=== PATIENT | male | born 1960 | race Caucasian/White ===

== ENCOUNTER 2018-02-01 07:45 | Emergency (ER) | payer BC ==
[~2018-02-01] VITALS: Ht 167.6 cm; Wt 74.8 kg
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
[2018-02-01] MEDS ORDERED: KETOROLAC TROMETHAMINE 60 MG/2 ML VIAL IM ONE (09:00)
[2018-02-01] MEDS ORDERED: CYCLOBENZAPRINE5 MG PO (09:56)
== END 2018-02-01 10:23 | disposition home or self-care (01) ==
LOC: ER 07:45
DX: M54.2 Cervicalgia (principal); V43.52XA Car driver injured in collision with other type car in traffic accident, initial encounter; R10.9 Unspecified abdominal pain; M54.5 Low back pain
CPT/HCPCS: 99282; J1885

== ENCOUNTER 2018-02-01 13:43 | Emergency (ER) | payer BC ==
[~2018-02-01] VITALS: Ht 167.6 cm; Wt 74.8 kg
[~2018-02-01 13:43] MED LIST: CYCLOBENZAPRINE5 MG PO
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
[2018-02-01] MEDS ORDERED: SODIUM CHLORIDE 0.9% 1000ML 1,000 ML IV STA (13:50)
[2018-02-01] MEDS ORDERED: MORPHINE SULFATE 4 MG/ML SYR IV STA (13:50)
[2018-02-01] MEDS ORDERED: ONDANSETRON HCL 4 MG ORAL DISINTEGRATING TAB PO ONE (14:00)
[2018-02-01 15:15] LABS: CLARITY,URINE HAZY (CLEAR); COLOR,URINE AMBER (YELLOW)
[2018-02-01 15:16] LABS: BILIRUBIN,URINE NEGATIVE (NEGATIVE); KETONES,URINE TRACE (NEGATIVE); LEUKOCYTE ESTERASE ,URINE NEGATIVE (NEGATIVE); NITRITE,URINE NEGATIVE (NEGATIVE); PROTEIN,URINE DIPSTICK TRACE (NEGATIVE); URINE UROBILINOGEN 0.2 mg/dL (0.2 - 1)
[2018-02-01 15:35] LABS: BACTERIA,URINE FEW /HPF; RBC,URINE 0-5 /HPF (0-5)
[2018-02-01 15:37] LABS: EPITHELIAL CELLS,URINE RARE /LPF
[2018-02-01 15:38] LABS: HYALINE CASTS >15 (0-1); RENAL EPITHELIAL CELLS,URINE FEW; TRANSITIONAL EPI CELLS,URINE FEW
[2018-02-01] MEDS ORDERED: MORPHINE SULFATE 2 MG/ML SYR ONE (16:45)
[2018-02-01 16:57] LABS: BASOPHILS # (AUTO) 0.1 (0.0-0.1); BASOPHILS % 0.7 % (0.0-1.0); EOSINOPHILS # (AUTO) 0.2 (0.0-0.4); EOSINOPHILS % 1.5 % (0.0-6.0); HEMATOCRIT 44.7 % (38.2-49.6); HEMOGLOBIN 15.1 g/dL (14.0-18.0); LYMPHOCYTES # (AUTO) 1.3 (1.0-3.2); LYMPHOCYTES % 9.9 % (18.0-39.1); MEAN CORPUSCULAR HGB CONC 33.8 g/dL (31-35); MEAN CORPUSCULAR VOLUME 91.8 fL (81-99); MONOCYTES # (AUTO) 0.8 (0.2-0.8); MONOCYTES % 5.7 % (4.4-11.3); NEUTROPHILS # (AUTO) 11.1 (2.1-6.9); NEUTROPHILS % 81.8 % (38.7-80.0); PLATELET COUNT 213 x10e3/uL (140-360); RED BLOOD COUNT 4.87 x10e6/uL (4.3-5.7)
[2018-02-01 17:01] LABS: INR 0.99; PROTHROMBIN TIME 12.3 seconds (11.9-14.5)
[2018-02-01 17:02] LABS: PARTIAL THROMBOPLASTIN TIME 25.2 seconds (23.8-35.5)
[2018-02-01 17:16] LABS: ALANINE AMINOTRANSFERASE 39 IU/L (0-55); ALBUMIN 4.3 g/dL (3.5-5.0); ALBUMIN/GLOBULIN RATIO 1.7 (0.8-2.0); ALKALINE PHOSPHATASE 64 IU/L (40-150); AMYLASE 49 U/L (25-125); ANION GAP 14.4 mmol/L (8-16); BLOOD UREA NITROGEN 25 mg/dL (7-26); BUN/CREATININE RATIO 19 (6-25); CALCIUM 9.7 mg/dL (8.4-10.2); CARBON DIOXIDE 28 mmol/L (22-29); CHLORIDE 103 mmol/L (98-107); CREATINE KINASE 188 IU/L (30-200); CREATININE, SERUM 1.29 mg/dL (0.72-1.25); EST GLOMERULAR FILTRATION RATE 57 ML/MIN (60-); GLUCOSE 106 mg/dL (74-118); LIPASE 29 U/L (8-78); POTASSIUM 4.4 mmol/L (3.5-5.1); SODIUM 141 mmol/L (136-145)
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
[2018-02-01] MEDS ORDERED: SODIUM CHLORIDE 0.9% 50ML 50 ML ONE (22:02)
[2018-02-01] MEDS ORDERED: IOPAMIDOL 370 MG/ML 200 ML INFUS..BTL INJ ONE (22:02)
== END 2018-02-01 19:00 | disposition home or self-care (01) ==
LOC: ER 13:43
DX: R10.84 Generalized abdominal pain (principal); R11.2 Nausea with vomiting, unspecified
CPT/HCPCS: 36415; 74177; 80053; 81001; 82150; 82550; 82553; 83690; 84484; 85025; 85610; 85730; 87086; 93005; 99284; J2270; J7030; Q9967

== ENCOUNTER 2019-04-09 14:30 | Inpatient (IN) | payer BC ==
[~2019-04-09] VITALS: Ht 167.6 cm; Wt 70.1 kg
--- OUTSIDE RECORDS SUMMARY | 2019-04-09 14:33 | XMS REPORT | Continuity of Care Document ---
Author Author [employer] Address Unknown Phone Unavailable Care Team Providers Care Global Sourcing Manager Name Role Phone [facility] [employer] Unavailable Unavailable Problems No Data Provided for This Section Medications Medication Details Route Status Patient Instructions Ordering Provider Order Date Source Cyclobenzaprine Hcl (Flexeril) 5 Mg Tablet Three Times A Day for Pain Active [place] 02/01/2018 [facility] Allergies, Adverse Reactions, Alerts No Known Medication Allergies Immunizations No Data Provided for This Section Results Order Name Results Value Reference Range Date Interpretation Comments Source Activated partial thromboplastin time (aPTT) in platelet poor plasma bycoagulation assay Activated partial thromboplastin time (aPTT) in platelet poor plasma bycoagulation assay 25.2 23.8 - 35.5 02/01/2018 [facility] Automated blood basophil count (count/volume) Automated blood basophil count (count/volume) 0.1 0.0 - 0.1 02/01/2018 [facility] Automated blood basophil count as percentage of total leukocytes Automated blood basophil count as percentage of total leukocytes 0.7 0.0 - 1.0 02/01/2018 [facility] Automated blood eosinophil count Automated blood eosinophil count 0.2 0.0 - 0.4 02/01/2018 [facility] Automated blood eosinophil count as percentage of total leukocytes Automated blood eosinophil count as percentage of total leukocytes 1.5 0.0 - 6.0 02/01/2018 [facility] Automated blood hematocrit (volume fraction) Automated blood hematocrit (volume fraction) 44.7 38.2 - 49.6 02/01/2018 [facility] Automated blood lymphocyte count as percentage ot total leukocytes Automated blood lymphocyte count as percentage ot total leukocytes 9.9 18.0 - 39.1 02/01/2018 [facility] Automated blood monocyte count as percentage of total leukocytes Automated blood monocyte count as percentage of total leukocytes 5.7 4.4 - 11.3 02/01/2018 [facility] Automated blood neutrophil count Automated blood neutrophil count 11.1 2.1 - 6.9 02/01/2018 [facility] Automated blood platelet count (count/volume) Automated blood platelet count (count/volume) 213 140 - 360 02/01/2018 [facility] Automated blood segmented neutrophil count as percentage of total leukocytes Automated blood segmented neutrophil count as percentage of total leukocytes 81.8 38.7 - 80.0 02/01/2018 [facility] Automated erythrocyte mean corpuscular hemoglobin (mass per erythrocyte) Automated erythrocyte mean corpuscular hemoglobin (mass per erythrocyte) 31.0 28 - 32 02/01/2018 [facility] Automated erythrocyte mean corpuscular hemoglobin concentration measurement (mass/volume) Automated erythrocyte mean corpuscular hemoglobin concentration measurement (mass/volume) 33.8 31 - 35 02/01/2018 [facility] Automated erythrocyte mean corpuscular volume Automated erythrocyte mean corpuscular volume 91.8 81 - 99 02/01/2018 [facility] Blood erythrocytes automated count (number/volume) Blood erythrocytes automated count (number/volume) 4.87 4.3 - 5.7 02/01/2018 [facility] Blood hemoglobin measurement (moles/volume) Blood hemoglobin measurement (moles/volume) 15.1 14.0 - 18.0 02/01/2018 [facility] Blood leukocytes automated count (number/volume) Blood leukocytes automated count (number/volume) 13.53 4.8 - 10.8 02/01/2018 [facility] Blood lymphocytes count (number/volume) Blood lymphocytes count (number/volume) 1.3 1.0 - 3.2 02/01/2018 [facility] Blood monocytes automated count (number/volume) Blood monocytes automated count (number/volume) 0.8 0.2 - 0.8 02/01/2018 [facility] Estimated glomerular filtration rate (GFR) determination Estimated glomerular filtration rate (GFR) determination 57 60 02/01/2018 [facility] Glucose measurement Glucose measurement 106 74 - 118 02/01/2018 [facility] INR in Platelet poor plasma by Coagulation assay INR in Platelet poor plasma by Coagulation assay 0.99 02/01/2018 [facility] Plasma globulin measurement (mass/volume) Plasma globulin measurement (mass/volume) 2.6 2.3 - 3.5 02/01/2018 [facility] Prothrombin time (PT) in platelet poor plasma by coagulation assay Prothrombin time (PT) in platelet poor plasma by coagulation assay 12.3 11.9 - 14.5 02/01/2018 [facility] Serum or plasma alanine aminotransferase measurement (enzymatic activity/volume) Serum or plasma alanine aminotransferase measurement (enzymatic activity/volume) 39 0 - 55 02/01/2018 [facility] Serum or plasma albumin measurement (mass/volume) Serum or plasma albumin measurement (mass/volume) 4.3 3.5 - 5.0 02/01/2018 [facility] Serum or plasma albumin/globulin mass ratio Serum or plasma albumin/globulin mass ratio 1.7 0.8 - 2.0 02/01/2018 [facility] Serum or plasma alkaline phosphatase measurement (enzymatic activity/volume) Serum or plasma alkaline phosphatase measurement (enzymatic activity/volume) 64 40 - 150 02/01/2018 [facility] Serum or plasma amylase measurement (enzymatic activity/volume) Serum or plasma amylase measurement (enzymatic activity/volume) 49 25 - 125 02/01/2018 [facility] Serum or plasma anion gap Serum or plasma anion gap 14.4 8 - 16 02/01/2018 [facility] Serum or plasma calcium measurement (mass/volume) Serum or plasma calcium measurement (mass/volume) 9.7 8.4 - 10.2 02/01/2018 [facility] Serum or plasma carbon dioxide, total measurement (moles/volume) Serum or plasma carbon dioxide, total measurement (moles/volume) 28 22 - 29 02/01/2018 [facility] Serum or plasma chloride measurement (moles/volume) Serum or plasma chloride measurement (moles/volume) 103 98 - 107 02/01/2018 [facility] Serum or plasma creatine kinase MB measurement (mass/volume) Serum or plasma creatine kinase MB measurement (mass/volume) 2.60 0 - 5.0 02/01/2018 [facility] Serum or plasma creatine kinase measurement (enzymatic activity/volume) Serum or plasma creatine kinase measurement (enzymatic activity/volume) 188 30 - 200 02/01/2018 [facility] Serum or plasma creatinine measurement (mass/volume) Serum or plasma creatinine measurement (mass/volume) 1.29 0.72 - 1.25 02/01/2018 [facility] Serum or plasma lipase measurement (enzymatic activity/volume) Serum or plasma lipase measurement (enzymatic activity/volume) 29 8 - 78 02/01/2018 [facility] Serum or plasma potassium measurement (moles/volume) Serum or plasma potassium measurement (moles/volume) 4.4 3.5 - 5.1 02/01/2018 [facility] Serum or plasma protein measurement (mass/volume) Serum or plasma protein measurement (mass/volume) 6.9 6.5 - 8.1 02/01/2018 [facility] Serum or plasma sodium measurement (moles/volume) Serum or plasma sodium measurement (moles/volume) 141 136 - 145 02/01/2018 [facility] Serum or plasma total bilirubin measurement (mass/volume) Serum or plasma total bilirubin measurement (mass/volume) 0.6 0.2 - 1.2 02/01/2018 [facility] Serum or plasma urea nitrogen measurement (mass/volume) Serum or plasma urea nitrogen measurement (mass/volume) 25 7 - 26 02/01/2018 [facility] Serum or plasma urea nitrogen/creatinine mass ratio Serum or plasma urea nitrogen/creatinine mass ratio 19 6 - 25 02/01/2018 [facility] Troponin I measurement by highly sensitive enzyme immunoassay Troponin I measurement by highly sensitive enzyme immunoassay <0.001 0 - 0.300 02/01/2018 [facility] Red Cell Distribution Width 12.0 11.7 - 14.4 02/01/2018 [facility] IM GRANULOCYTES % 0.4 0.0 - 1.0 02/01/2018 [facility] Absolute Immature Granulocyte (auto 0.05 0 - 0.1 02/01/2018 [facility] Aspartate Amino Transf (AST/SGOT) 29 5 - 34 02/01/2018 [facility] Automated urine sediment leukocyte count by microscopy (number/high power field) Automated urine sediment leukocyte count by microscopy (number/high power field) <10 0 - 5 02/01/2018 [facility] Bacteria detection in urine sediment by light microscopy Bacteria detection in urine sediment by light microscopy FEW NONE 02/01/2018 [facility] Epithelial cells detection in urine sediment by light microscopy Epithelial cells detection in urine sediment by light microscopy RARE NONE 02/01/2018 [facility] Erythrocytes detection in urine sediment by light microscopy Erythrocytes detection in urine sediment by light microscopy <5 0 - 5 02/01/2018 [facility] Hyaline casts detection in urine sediment by light microscopy Hyaline casts detection in urine sediment by light microscopy >15 0 - 1 02/01/2018 [facility] Renal epithelial cells detection in urine sediment by light microscopy Renal epithelial cells detection in urine sediment by light microscopy FEW NONE 02/01/2018 [facility] Specific gravity of Urine by Test strip Specific gravity of Urine by Test strip 1.030 1.010 - 1.025 02/01/2018 [facility] Transitional cells detection in urine sediment by light microscopy Transitional cells detection in urine sediment by light microscopy FEW NONE 02/01/2018 [facility] Urine clarity Urine clarity HAZY CLEAR 02/01/2018 [facility] Urine color determination Urine color determination KAIA YELLOW 02/01/2018 [facility] Urine erythrocytes detection Urine erythrocytes detection NEGATIVE NEGATIVE 02/01/2018 [facility] Urine glucose detection Urine glucose detection NEGATIVE NEGATIVE 02/01/2018 [facility] Urine ketones detection by automated test strip Urine ketones detection by automated test strip TRACE NEGATIVE 02/01/2018 [facility] Urine leukocyte esterase detection by dipstick Urine leukocyte esterase detection by dipstick NEGATIVE NEGATIVE 02/01/2018 [facility] Urine nitrite detection Urine nitrite detection NEGATIVE NEGATIVE 02/01/2018 [facility] Urine pH measurement by automated test strip Urine pH measurement by automated test strip 6 5 - 7 02/01/2018 [facility] Urine protein measurement by test strip (mass/volume) Urine protein measurement by test strip (mass/volume) TRACE NEGATIVE 02/01/2018 [facility] Urine total bilirubin measurement (mass/volume) Urine total bilirubin measurement (mass/volume) NEGATIVE NEGATIVE 02/01/2018 [facility] Urine urobilinogen measurement by test strip (mass/volume) Urine urobilinogen measurement by test strip (mass/volume) 0.2 0.2 - 1 02/01/2018 [facility] Pathology Reports No Data Provided for This Section Diagnostic Reports No Data Provided for This Section Consultation Notes No Data Provided for This Section Discharge Summaries No Data Provided for This Section History and Physicals No Data Provided for This Section Vital Signs No Data Provided for This Section Encounters Location Location Details Encounter Type Encounter Number Reason For Visit Attending Provider ADM Date DC Date Status Source Departed Emergency Room [id number] ARTHUR SINGLETON MD 02/01/2018 02/01/2018 [facility] Departed Emergency Room [id number] ARTHUR SINGLETON MD 02/01/2018 02/01/2018 [facility] Procedures Procedure Code Date Perfomer Comments Source Computed tomography of abdomen and pelvis with contrast [id number] 02/01/2018 [facility] Assessment and Plan No Data Provided for This Section Plan of Care Plan of Care Date Source Discharge Date 02/01/18 7:00pm Disposition HOME, SELF-CARE Condition at Discharge Stable Instructions/Education Provided Abdominal Pain - Adult Vomiting - Adult Forms Provided Work/School Excuse Prescriptions See Medication Section Referrals JACKY CHOI Address: [address] [place] [id number] Additional Instructions/Education 1. increase oral fluids 2. bland diet x 24 hours 3. follow up with your doctor in 1-2 days without fail 4. return to ed as needed 02/01/2018 [facility] Social History Social History Date Source No social history information available. 02/01/2018 [facility] Family History No Data Provided for This Section Advance Directives Order Name Results Value Date Source Advance Directives Advance Directives Directive Response Recorded Date/Time Does the patient have an advance directive? No 01/18/08 7:54am If yes, is advance directive on file with [facility]? No 01/18/08 7:54am If not on file with [facility] will patient provide a copy? No 02/01/18 9:08am Do you have a Directive to Physician? No 02/01/18 5:10pm Do you have a Medical Power of Paralegal Assistant? No 02/01/18 5:10pm Do you have an out of hospital Do Not Resuscitate Order? No 02/01/18 5:10pm Do you have any special needs we should be aware of? No 02/01/18 5:10pm Do you have a support person here with you today? Yes 02/01/18 5:10pm Did patient receive Notice of Privacy Practices? Yes 02/01/18 5:10pm Did patient receive patient rights and responsibilities? Yes 02/01/18 5:10pm 02/01/2018 [facility] Functional Status No Data Provided for This Section
--- OUTSIDE RECORDS SUMMARY | 2019-04-09 14:33 | XMS REPORT | Summary of Care ---
Author Author Camryn Nguyen M.A. Organization Unknown Address [facility] Phone Unavailable Care Team Providers Care Digital Project Coordinator Name Role Phone LUIS MENDOZA M.D. Unavailable STEPH Brown, JACKY Shah Unavailable Camryn Nguyen M.A. Unavailable Unavailable STEPH WHITAKER WIJACKY Unavailable Unavailable KRYSTAL WHITAKER, GARRETT Otero Unavailable Unavailable REJI WHITAKER [place], LUIS Prather Unavailable Unavailable Unavailable Unavailable Functional Status Name Dates Details Functional status health issues are not documented Status: Name Dates Details Cognitive status health issues are not documented Status: Problems Name Dates Details Dextroscoliosis (737.39, M41.80) Status: Active Encounter for prostate cancer screening (V76.44, Z12.5) Status: Active Flu vaccine need (V04.81, Z23) Status: Active Choledocholithiasis (574.50, K80.50) Status: Active 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 * Start : 21-Feb-2015 Active Alclometasone Dipropionate 0.05 % External Cream APPLY CREAM SPARINGLY TO AFFECTED AREA(S) THREE TIMES DAILY * Quantity: 1 Refills: 0 LUIS MENDOZA M.D. * Start : 16-Nov-2018 Active 15 GM Tube Nizoral A-D 1 % External Shampoo APPLY TO SCALP EVERY OTHER DAY FOR 5 MINUTES AND RINSE. * Quantity: 1 Refills: 3 LUIS MENDOZA M.D. * Start : 16-Nov-2018 Active 200 ML Bottle Triamcinolone Acetonide 0.5 % External Cream APPLY SPARINGLY TO AFFECTED AREA(S) 2 TO 3 TIMES DAILY. * Quantity: 1 Refills: 0 LUIS MENDOZA M.D. * Start : 21-Nov-2018 Active 15 GM Tube Allergies and Adverse Reactions Name Dates Details [...] (737.30, M41.9) Status: Resolved History of Skin lesion of left leg (709.9, L98.9) Status: Resolved History of Skin tag (701.9, [...] ML Intramuscular Suspension Prefilled Syringe Lot #: [id number] on: 31-May-2017 Family History Name Dates Details Family history of Hypertension (V17.49) Comments: Family History Status: Active Family history of Cancer Comments: Family History Status: Active Name Dates Details Family history of Hypertension (V17.49) Status: Active Family history of Cancer Status: Active Social History Name Dates Details - Status: Name Dates Details Never smoker Vital Signs Date Test Result Details [id number] Physical Findings 0 Status: Comments: PHQ-9 Adult Depression Screening 24-Kob-197890:00 BP Systolic 133 mm[Hg] Status: Comments: Location: RUE; Position: Sitting BP Diastolic 88 mm[Hg] Status: Comments: Location: [facility]; Position: Sitting Height 66 in Status: Weight 164 lb Status: Body Mass Index Calculated 26.47 kg/m2 Status: Body Surface Area Calculated 1.84 m2 Status: Temperature 98.1 f Status: Comments: Method: Temporal Respiration Rate 16 /min Status: Heart Rate 71 /min Status: 14-Wpb-424392:59 Physical Findings 0 Status: Comments: Alcohol Screen - How many times in the past yr have you had 5 (for M) or 4 (for F) or 4 (for all > 65yrs) or more drinks in a day? Results Date Description Value Details :34 [] LIPID PANEL WITH REFLEX TO DIRECT LDL CHOLESTEROL, TOTAL 176 mg/dl (Normal) Range: <200 HDL CHOLESTEROL 79 mg/dl (Normal) Range: >40 TRIGLYCERIDES 56 mg/dl (Normal) Range: <150 LDL-CHOLESTEROL 83 {MG/DL__CAL} (Normal) Comments: Reference range: <100 Desirable range <100 mg/dL for primary prevention; <70 mg/dL for patients with CHD or diabetic patients with > or=2 CHD risk factors. LDL-C is now calculated using anil Ness calculation, which is a validated novel method providing better accuracy than the Friedewald equation in the estimation of LDL-C. Patrick SS et al. COTY. 2013;310(19): 9528-0611 (http:/ /education.DraftDay.Bellabeat/faq/PVB132) CHOL/HDLC RATIO 2.2 {CALC} (Normal) Range: <5.0 NON HDL CHOLESTEROL 97 {MG/DL__CAL} (Normal) Range: <130 Comments: For patients with diabetes plus 1 major ASCVD risk factor, treating to a non-HDL-C goal of <100 mg/dL (LDL-C of <70 mg/dL) is considered a therapeutic option. :34 [[facility]] CMP W/EGFR GLUCOSE 100 mg/dl (Above high threshold) Range: 65-99 Comments: Fasting reference interval For someone without known diabetes, a glucose valuebetween 100 and 125 mg/dL is consistent withprediabetes and should be confirmed with afollow-up test. UREA NITROGEN (BUN) 19 mg/dl (Normal) Range: 7-25 CREATININE 0.77 mg/dl (Normal) Range: 0.70-1.25 Comments: For patients >49 years of age, the reference limitfor Creatinine is approximately 13% higher for peopleidentified as -Haitian. eGFR NON- 99 {ML/MIN/1.7} (Normal) Range: > OR=60 eGFR 114 {ML/MIN/1.7} (Normal) Range: > OR=60 BUN/CREATININE RATIO NOT APPLICABLE {CALC} Range: 6-22 SODIUM 140 mmol/L (Normal) Range: 135-146 POTASSIUM 4.3 mmol/L (Normal) Range: 3.5-5.3 CHLORIDE 103 mmol/L (Normal) Range: 98-110 CARBON DIOXIDE 31 mmol/L (Normal) Range: 20-32 CALCIUM 9.1 mg/dl (Normal) Range: 8.6-10.3 PROTEIN, TOTAL 6.1 g/dl (Normal) Range: 6.1-8.1 ALBUMIN 4.2 g/dl (Normal) Range: 3.6-5.1 GLOBULIN 1.9 {G/DL__CALC} (Normal) Range: 1.9-3.7 ALBUMIN/GLOBULIN RATIO 2.2 {CALC} (Normal) Range: 1.0-2.5 BILIRUBIN, TOTAL 0.4 mg/dl (Normal) Range: 0.2-1.2 ALKALINE PHSPHATASE 65 u/l (Normal) Range: 40-115 AST 22 u/l (Normal) Range: 10-35 ALT 31 u/l (Normal) Range: 9-46 39-Wcr-24599:34 [[facility]] CBC (INCLUDES DIFF/PLT) WHITE BLOOD CELL COUNT 6.1 {Thousand/u} (Normal) Range: 3.8-10.8 RED BLOOD CELL COUNT 4.92 {Million/uL} (Normal) Range: 4.20-5.80 HEMAGLOBIN 15.4 g/dl (Normal) Range: 13.2-17.1 HEMATOCRIT 44.3 % (Normal) Range: 38.5-50.0 MCV 90.0 fL (Normal) Range: 80.0-100.0 MCH 31.3 pg (Normal) Range: 27.0-33.0 MCHC 34.8 g/dl (Normal) Range: 32.0-36.0 RDW 12.0 % (Normal) Range: 11.0-15.0 PLATELET COUNT 208 {Thousand/u} (Normal) Range: 140-400 MPV 10.3 fL (Normal) Range: 7.5-12.5 ABSOLUTE NEUTROPHILS 3617 {cells/uL} (Normal) Range: 7787-0141 ABSOLUTE LYMPHOCYTES 1647 {cells/uL} (Normal) Range: 850-3900 ABSOLUTE MONOCYTES 512 {cells/uL} (Normal) Range: 200-950 ABSOLUTE EOSINOPHILS 232 {cells/uL} (Normal) Range: 15-500 ABSOLUTE BASOPHILS 92 {cells/uL} (Normal) Range: 0-200 NEUTROPHILS 59.3 % (Normal) LYMPHOCYTES 27.0 % (Normal) MONOCYTES 8.4 % (Normal) EOSINOPHILS 3.8 % (Normal) BASOPHILS 1.5 % (Normal) 03-Qnj-44936:34 [[facility]] TSH, 3RD GENERATION W/REFLEX TO FT4 Comments: REPORT COMMENT:FASTING:YES TSH, 3RD GENERATION W/REFLEX TO FT4 1.47 {MIU/L} (Normal) Range: 0.40-4.50 16-Mnt-327613:00 Tobacco Use Screening Completed DONE Plan of Care Name Dates Details Planned Observations Planned Goals not documented Instructions Name Dates Details Instructions not documented Encounters Appointment; ALEXANDER HEARD NP Encounter Diagnosis: Problem not documented On: 31-May-2017 9:30 Appointment; JACKY CHOI M.D. Encounter Diagnosis: Problem not documented On: 12-Dec-2017 12:00 Appointment; JACKY CHOI M.D. Encounter Diagnosis: Problem not documented On: 05-Jul-2018 9:45 Appointment; GARRETT RICE M.D. Encounter Diagnosis: Problem not documented On: 03-Nov-2018 15:00 Appointment; LUIS MENDOZA M.D. Encounter Diagnosis: Problem not documented On: 16-Nov-2018 13:15 Appointment; JACKY CHOI M.D. Encounter Diagnosis: Problem not documented On: 19-Jan-2019 16:00
--- OUTSIDE RECORDS SUMMARY | 2019-04-09 14:33 | XMS REPORT ---
Author Author [facility] Address Unknown Phone Unavailable Care Team Providers Care Control Director Name Role Phone ARELIMinnieENCE Unavailable Unavailable Problems This patient has no known problems. Allergies, Adverse Reactions, Alerts This patient has no known allergies or adverse reactions. Medications This patient has no known medications. Results Test Description Test Time Test Comments Text Results Atomic Results Result Comments CT ABDOMEN/PELVIS W 2018-02-01 18:14:00 [facility] [address] [address] Patient Name: JUAN NICOLE MR #: [id number] : 1960 Age/Sex: 57/M Req #: [id number] Adm Physician: Ordered by: ROBERTO GOTTI FINANCE PROFESSOR Report #: [id number] Location: ER Room/Bed: Procedure: CT/CT ABDOMEN/PELVIS W Exam Date: 02/01/18 Exam Time: 1745 REPORT STATUS: Signed EXAM: CT Abdomen and Pelvis WITH contrast INDICATION: COMPARISON: None. TECHNIQUE: Abdomen and pelvis were scanned utilizing a multidetector helical scanner from the lung base to the pubic symphysis after administration of IV contrast. Coronal and sagittal reformations were obtained. Routine protocol was performed. Scan was performed when during portal venous phase. IV CONTRAST: 100 mL of Isovue-370 ORAL CONTRAST: None. COMPLICATIONS: None RADIATION DOSE: Total DLP: 471.86 mGy*cm Estimated effective dose: (DLP x 0.015 x size factor) mSv CTDIvol has been reviewed. It is below the limits set by the Radiation Protocol Committee (RPC). FINDINGS: LINES and TUBES: None. LOWER THORAX: Unremarkable HEPATOBILIARY: No focal hepatic lesions. No biliary ductal dilation. GALLBLADDER: Cholecystectomy. SPLEEN: No splenomegaly. 1.2 cm hypodense lesion in the superior spleen (series 2, image 4), may represent a hemangioma. PANCREAS: No focal masses or ductal dilatation. ADRENALS: No adrenal nodules KIDNEYS/URETERS: Kidneys enhance symmetrically. No hydronephrosis. No cystic or solid mass le sions. No stones. GI TRACT: No abnormal distention, wall thickening, or evidence of bowel obstruction. Appendix is normal. Lateral displacement of the small bowel loops in left abdomen. PELVIC ORGANS/BLADDER: Unremarkable. LYMPH NODES: No lymphadenopathy. VESSELS: Unremarkable. PERITONEUM / RETROPERITONEUM: No free air or fluid. BONES: Lumbar spine scoliosis, status post posterior fixation with bilateral Isidro rods and multiple screws. Evaluation of the spine is limited due to streak artifacts. SOFT TISSUES: Unremarkable. Diastases of the rectus muscle. Abdominal wall surgical scars. IMPRESSION: 1. No evidence of traumatic injury in the abdomen/pelvis. 2. Lateral displacement of the small bowel loops to the left abdomen, suggestive of internal herniation. No evidence of bowel obstruction or strangulation. Signed by: Dr. Amol Ace MD on 02/01/2018 6:26 PM Dictated By: AMOL ACE MD 25 Transcribed By: KATERINA on 02/01/181825 COPY TO: ROBERTO GOTTI NP
[2019-04-09] MEDS ORDERED: SODIUM CHLORIDE 0.9% 1000ML 1,000 ML IV STA (15:08)
[2019-04-09] MEDS ORDERED: ONDANSETRON HCL INJ 2MG/ML 2ML 2 MG/ML VIAL IV ONE (15:08)
[2019-04-09 15:29] LABS: BASOPHILS % 0.4 % (0.0-1.0); EOSINOPHILS # (AUTO) 0.1 (0.0-0.4); EOSINOPHILS % 1.9 % (0.0-6.0); HEMATOCRIT 43.6 % (38.2-49.6); HEMOGLOBIN 15.2 g/dL (14.0-18.0); LYMPHOCYTES # (AUTO) 1.5 (1.0-3.2); LYMPHOCYTES % 22.8 % (18.0-39.1); MEAN CORPUSCULAR HEMOGLOBIN 31.3 pg (28-32); MEAN CORPUSCULAR HGB CONC 34.9 g/dL (31-35); MEAN CORPUSCULAR VOLUME 89.7 fL (81-99); MONOCYTES # (AUTO) 0.9 (0.2-0.8); MONOCYTES % 13.5 % (4.4-11.3); NEUTROPHILS # (AUTO) 4.1 (2.1-6.9); PLATELET COUNT 189 x10e3/uL (140-360); RED BLOOD COUNT 4.86 x10e6/uL (4.3-5.7)
[2019-04-09] MEDS ORDERED: PANTOPRAZOLE 40 MG 10ML VIAL IV STA (15:33)
[2019-04-09 15:42] LABS: BILIRUBIN,URINE NEGATIVE (NEGATIVE); CLARITY,URINE SL CLOUDY (CLEAR); COLOR,URINE YELLOW (YELLOW); KETONES,URINE TRACE (NEGATIVE); LEUKOCYTE ESTERASE ,URINE NEGATIVE (NEGATIVE); NITRITE,URINE NEGATIVE (NEGATIVE); PROTEIN,URINE DIPSTICK TRACE (NEGATIVE); URINE UROBILINOGEN 0.2 mg/dL (0.2 - 1)
[2019-04-09 15:49] LABS: ALANINE AMINOTRANSFERASE 45 IU/L (0-55); ALBUMIN 3.8 g/dL (3.5-5.0); ALBUMIN/GLOBULIN RATIO 1.4 (0.8-2.0); ALKALINE PHOSPHATASE 78 IU/L (40-150); ANION GAP 15.1 mmol/L (8-16); BLOOD UREA NITROGEN 42 mg/dL (7-26); BUN/CREATININE RATIO 27 (6-25); CALCIUM 9.1 mg/dL (8.4-10.2); CARBON DIOXIDE 24 mmol/L (22-29); CHLORIDE 100 mmol/L (98-107); CREATINE KINASE 81 IU/L (30-200); CREATININE, SERUM 1.53 mg/dL (0.72-1.25); EST GLOMERULAR FILTRATION RATE 47 ML/MIN (60-); GLUCOSE 92 mg/dL (74-118); LIPASE 34 U/L (8-78); MAGNESIUM 2.2 MG/DL (1.3-2.1); POTASSIUM 3.1 mmol/L (3.5-5.1); SODIUM 136 mmol/L (136-145)
[2019-04-09 16:02] LABS: BACTERIA,URINE MODERATE /HPF
[2019-04-09 16:03] LABS: AMORPHOUS SEDIMENT,URINE MODERATE (FEW)
--- NOTE | 2019-04-09 16:41 | Diagnostic Imaging Report ---
EXAMINATION: CHEST SINGLE (PORTABLE) INDICATION: Hypotension, nausea vomiting and diarrhea COMPARISON: None FINDINGS: LINES/TUBES:None LUNGS:The lungs are well-inflated. No focal consolidation or pulmonary edema. PLEURA:No pleural effusion or pneumothorax. MEDIASTINUM:The cardiomediastinal silhouette appears normal in size and shape. BONES/SOFT TISSUES:Dextroconvex curvature of the thoracic spine. Postoperative changes of spinal fusion hardware. Extensive heterotopic ossification. ABDOMEN:No free air under the diaphragm. IMPRESSION: No focal pneumonia or pulmonary edema. Signed by: Brandy Lind MD on 04/09/2019 4:37 PM
[2019-04-09] MEDS ORDERED: KCL 20MEQ/.9 SOD CHL 1,000 ML IV ONE ×2 (16:45→19:30)
--- NOTE | 2019-04-09 18:44 | Diagnostic Imaging Report ---
EXAM: CT Abdomen and Pelvis WITH contrast INDICATION: ^LLQ TENDERNESS ^[id number] ^[id number] COMPARISON: CT abdomen/pelvis, 02/01/2018 (report only; images are not available on PACS) TECHNIQUE: Abdomen and pelvis were scanned utilizing a multidetector helical scanner from the lung base to the pubic symphysis after administration of IV contrast. Coronal and sagittal reformations were obtained. Routine protocol was performed. Scan was performed when during portal venous phase. Dose modulation, iterative reconstruction, and/or weight based adjustment of the mA/kV was utilized to reduce the radiation dose to as low as reasonably achievable. IV CONTRAST: 100 mL of Isovue-370 ORAL CONTRAST: None RADIATION DOSE: Total DLP: 642.83 mGy*cm Estimated effective dose: (DLP x 0.015 x size factor) mSv COMPLICATIONS: None FINDINGS: LINES and TUBES: None. LOWER THORAX: Lung bases are clear. Heart size normal. HEPATOBILIARY: No focal hepatic lesions. No biliary ductal dilation. GALLBLADDER: Surgical clips in the gallbladder fossa. SPLEEN: Hyperdense enhancing lesion in the superior spleen likely representing a hemangioma. PANCREAS: No focal masses or ductal dilatation. ADRENALS: No adrenal nodules KIDNEYS/URETERS: Kidneys enhance symmetrically. No hydronephrosis. No cystic or solid mass lesions. No stones. GI TRACT: No abnormal distention, wall thickening, or evidence of bowel obstruction. Sigmoid diverticula with no CT evidence for acute diverticulitis. There is a partial swirl of mesenteric vessels without evidence for full volvulus. This may represent a partial mesenteric twist or may be related to small bowel internal herniation as described on the previous CT. There is mild distention of small bowel loops with air-fluid levels. Appendix is normal. PELVIC ORGANS/BLADDER: Urinary bladder appears unremarkable. No discrete abnormal mass or fluid collection in the pelvis. Surgical clips are seen in the presacral area. LYMPH NODES: No lymphadenopathy. VESSELS: The upper abdominal aorta is unremarkable. The distal aorta and aortic bifurcation are obscured by artifact from spinal hardware. Visualized IVC appears unremarkable. The portal system is patent. PERITONEUM / RETROPERITONEUM: No pneumoperitoneum or ascites. BONES: No acute or suspicious bony lesions. There is scoliosis with extensive spinal fusion hardware partially visualized. SOFT TISSUES: Superficial surrounding soft tissue unremarkable. IMPRESSION: 1. Mild distention of small bowel loops with fluid levels may be related to ileus or partial obstruction. 2. There is a partial twist of mesenteric vessels which does not appear to represent a full volvulus but may be related to the internal herniation of small bowel loops noted on the previous exam. 3. Sigmoid diverticulosis with no CT evidence for acute diverticulitis. Staff: Juan Carlos Signed by: Dr. Macho Rangel M.D. on 04/09/2019 6:40 PM
[2019-04-09] MEDS ORDERED: ONDANSETRON HCL INJ 2MG/ML 2ML 2 MG/ML VIAL IV PRN (19:30)
[2019-04-09] MEDS ORDERED: MORPHINE SULFATE 2 MG/ML SYR 1ML IV PRN (19:30)
[2019-04-09] MEDS ORDERED: SODIUM CHLORIDE 0.9% 1000ML 1,000 ML IV SCH (19:45)
--- NOTE | 2019-04-09 19:48 | NUR ---
Patient refused NG tube. I spoke with Dr López and Dr Tim García
--- OUTSIDE RECORDS SUMMARY | 2019-04-09 21:03 | XMS REPORT | Continuity of Care Document ---
Author Author [employer] Address Unknown Phone Unavailable Care Team Providers Care Solar Installation Supervisor Name Role Phone [facility] VEEDIMS Unavailable Unavailable Problems No Data Provided for This Section Medications Medication Details Route Status Patient Instructions Ordering Provider Order Date Source Cyclobenzaprine Hcl (Flexeril) 5 Mg Tablet Three Times A Day for Pain Active [place] 02/01/2018 [facility] Allergies, Adverse Reactions, [...] DC Date Status Source Departed Emergency Room [id number] ARTHUR SINGLETON MD 02/01/2018 02/01/2018 [facility] Departed Emergency Room [id number] ARTHUR SINGLETON MD 02/01/2018 02/01/2018 [facility] Procedures Procedure Code Date Perfomer Comments Source Computed tomography of abdomen and pelvis with contrast [id number] 02/01/2018 [facility] Assessment and Plan No Data Provided for This Section Plan of Care Plan of Care Date Source Discharge Date 02/01/18 7:00pm Disposition HOME, SELF-CARE Condition at Discharge Stable Instructions/Education Provided Abdominal Pain - Adult Vomiting - Adult Forms Provided Work/School Excuse Prescriptions See Medication Section Referrals JACKY CHOI Address: [address] [place] [id number] Additional Instructions/Education 1. increase oral fluids [...] yes, is advance directive on file with [facility]? No 01/18/08 7:54am If not on file with [facility] will patient provide a copy? No 02/01/18 9:08am Do you have a Directive to Physician? No 02/01/18 5:10pm Do you have a Medical Power of Customer Service Advocate? No 02/01/18 5:10pm Do you have an [...]
[2019-04-09 22:20] VITALS: BP 102/56
--- NOTE | 2019-04-09 22:20 | NUR ---
PT ARRIVED TO FLOOR VIA STRETCHER AT THIS TIME.
[2019-04-09] MEDS ORDERED: IOPAMIDOL 370 MG/ML 200 ML INFUS..BTL INJ ONE (22:50)
[2019-04-09] MEDS ORDERED: SODIUM CHLORIDE 0.9% 50ML 50 ML ONE (22:50)
[2019-04-10] VITALS (9 sets, daily range): BP systolic 102–131; BP diastolic 58–82
[2019-04-10 05:28] LABS: BASOPHILS % 0.6 % (0.0-1.0); EOSINOPHILS # (AUTO) 0.2 (0.0-0.4); EOSINOPHILS % 2.7 % (0.0-6.0); HEMOGLOBIN 13.7 g/dL (14.0-18.0); LYMPHOCYTES # (AUTO) 1.7 (1.0-3.2); LYMPHOCYTES % 26.8 % (18.0-39.1); MEAN CORPUSCULAR HEMOGLOBIN 30.9 pg (28-32); MEAN CORPUSCULAR HGB CONC 33.4 g/dL (31-35); MEAN CORPUSCULAR VOLUME 92.6 fL (81-99); MONOCYTES # (AUTO) 0.6 (0.2-0.8); MONOCYTES % 10.3 % (4.4-11.3); NEUTROPHILS # (AUTO) 3.7 (2.1-6.9); NEUTROPHILS % 59.1 % (38.7-80.0); PLATELET COUNT 171 x10e3/uL (140-360); RED BLOOD COUNT 4.43 x10e6/uL (4.3-5.7); RED CELL DISTRIBUTION WIDTH 12.1 % (11.7-14.4)
[2019-04-10 05:41] LABS: ANION GAP 11.8 mmol/L (8-16); BLOOD UREA NITROGEN 22 mg/dL (7-26); BUN/CREATININE RATIO 27 (6-25); CALCIUM 8.5 mg/dL (8.4-10.2); CARBON DIOXIDE 24 mmol/L (22-29); CHLORIDE 108 mmol/L (98-107); CREATININE, SERUM 0.83 mg/dL (0.72-1.25); EST GLOMERULAR FILTRATION RATE > 60 ML/MIN (60-); GLUCOSE 76 mg/dL (74-118); POTASSIUM 3.8 mmol/L (3.5-5.1); SODIUM 140 mmol/L (136-145)
[2019-04-10] MEDS: SODIUM CHLORIDE 0.9% 1000ML 1,000 ML IV SCH ×3 (06:18→22:18)
--- NOTE | 2019-04-10 07:08 | NUR ---
pt alert resp even and unlabored at this time no distress noted , pt has no c/o pain when asked, pt has family member at bedside, call light in reach.
--- NOTE | 2019-04-10 08:23 | NUR ---
pt off unit for test.
--- NOTE | 2019-04-10 08:55 | NUR ---
pt eturn to unit resp even omn distress noted.
--- NOTE | 2019-04-10 09:00 | NUR ---
pt had ekg at bedside, tolerated well.
--- NOTE | 2019-04-10 09:37 | Diagnostic Imaging Report ---
Exam: KUB - 2 views Clinical History: Ileus Comparison: CT abdomen and pelvis of 04/09/2019 Findings: Nonobstructive bowel gas pattern. No free air. The partially visualized lung bases appear clear. Status post cholecystectomy. Thoracolumbar fusion hardware spans the entirety of the visualized spine. Surgical clips project over the midline and pelvis. Impression: Nonobstructive bowel gas pattern. No free air. Signed by: Brandy Lind MD on 04/10/2019 9:33 AM
--- NOTE | 2019-04-10 13:50 | NUR ---
Visit made by the Spiritual Care Department Pastoral Visitor, [place]. PV provided pastoral presence, prayer, hospitality, and supportive listening. Pastoral Visitor informed pt/family of the scope of [employer] and availability. PB [employer] Branch Chief Spiritual Care Department O: [phone] Pager: [phone] ([phone] number calling from)
--- NOTE | 2019-04-10 14:10 | Consultation ---
DATE OF CONSULTATION: REASON FOR CONSULTATION: Possible bowel obstruction. HISTORY OF PRESENT ILLNESS: The patient is a pleasant 58-year-old male, who was admitted to the hospital complaining of diarrhea, nausea, and vomiting. The patient apparently ate some old hot dogs and subsequently shortly following the consumption of the old hot dogs began having nausea, vomiting, and diarrhea. He presented to [facility] ER, where he was admitted. He had a CT scan of the abdomen that revealed air-fluid levels of the small bowel consistent with partial bowel obstruction. Question was raised for the partial volvulus. The patient since admission feels a lot better. He has not had any vomiting, nausea, or diarrhea. Admission laboratory reveals twice normal CBC with normal white count. His admission electrolytes reveal hypokalemia that has been corrected with potassium and IV hydration. The patient following admission was given IV fluids, kept n.p.o. Follow up abdominal x-rays revealed no evidence of obstruction with a normal pattern. PAST MEDICAL HISTORY: Significant for hypertension. PAST SURGICAL HISTORY: Include laparoscopic cholecystectomy and anterior abdominal approach for correction of scoliosis. MEDICATIONS: His only medicine is hypertension medicine, which he does not remember the name. He does not smoke. Drinks socially. PHYSICAL EXAMINATION: GENERAL: Reveals a 58-year-old male, awake, alert, in no acute distress. ABDOMEN: Reveal a midline left paramedian incision from the previous anterior approach to the spine. ABDOMEN: Soft, nontender. His abdomen is protuberant. EXTREMITIES: Reveal no clubbing, cyanosis, or edema. NEUROLOGICAL: Nonfocal. SKIN: Normal turgor at this time. ASSESSMENT: Most likely what this patient had was an episode of food poisoning, which now has resolved. There is no evidence of bowel obstruction. At this point, I think it would be appropriate to start him on oral diet and advance it as tolerated and then following that, discharge him home. Should the symptoms recur, then he will need some more in depth GI evaluation sites. Thank you very much for this consultation. MD MEENA Zamudio/SUKHDEEP /[id number]
--- NOTE | 2019-04-10 19:00 | NUR ---
BEDSIDE [facility] JANE MORA AT THIS TIME. PT RESTING COMFORTABLY IN BED IN NO APPARENT DISTRESS. BED IS IN LOW LOCKED POSITION AND CALL LIGHT IS IN REACH OF PT. WILL CONTINUE TO MONITOR.
--- NOTE | 2019-04-10 19:03 | NUR ---
report given to oncoming nurse . pt stable.
[2019-04-11] VITALS: BP 130/60
[2019-04-11 04:00] VITALS: BP 108/60
[2019-04-11] MEDS: SODIUM CHLORIDE 0.9% 1000ML 1,000 ML IV SCH (05:29)
--- NOTE | 2019-04-11 07:01 | NUR ---
BEDSIDE REPORT GIVEN TO JANE GAMBOA AT THIS TIME.
[2019-04-11 08:06] VITALS: BP 112/69
[2019-04-11 08:50] VITALS: BP 112/69
--- NOTE | 2019-04-11 10:00 | NUR ---
patient alert and oriented. discharge instructions given at this time, patient verbalized understanding. IV discontinued at this time, catheter in tact and small dressing applied. patient to be wheeled out to personal auto for to drive home.
--- NOTE | 2019-04-12 08:20 | Discharge Summary ---
DISCHARGE DIAGNOSES: 1. Acute gastroenteritis, now resolved. 2. Hypokalemia, resolved. 3. Hypertension, controlled. HOSPITAL COURSE: Mr. Lopez is a pleasant 58-year-old gentleman, patient of Dr. Mitchell, who presented to the office with a 3 to 4-day history of nausea, vomiting, diarrhea, and low urine output and low blood pressure. He was sent to the ED for evaluation and admission. He was found to have significant dehydration with increased BUN and creatinine. His potassium was low at 3.1. CT of the abdomen and pelvis was indicating possible ileus versus partial bowel obstruction. He was admitted to the hospital. He was managed with IV fluids, potassium replacement, and he had an evaluation by Dr. Byron García, from the Surgical Service. With n.p.o. and IV fluids and potassium replacement, the patient quickly recovered and returned to baseline. He is being discharged home in stable condition. He is to follow up with his primary care physician as needed. MD RADHA Lester/RAMONL /[id number]
== END 2019-04-11 10:29 | disposition home or self-care (01) | DRG 392 ==
LOC: ER 14:30 → ERHOLD 21:00 → MED/SURG 22:20
PROVIDERS: ADMIT Internal Medicine; ATTEND Internal Medicine
DX: K52.9 Noninfective gastroenteritis and colitis, unspecified (principal); K56.7 Ileus, unspecified; K56.600 Partial intestinal obstruction, unspecified as to cause; E86.0 Dehydration; E87.6 Hypokalemia; I10 Essential (primary) hypertension
CPT/HCPCS: 36415; 71045; 74019; 74177; 80048; 80053; 81001; 82550; 82553; 83690; 83735; 84484; 85025; 87040; 87086; 93005; 99284; J2405; J7030; Q9967

== ENCOUNTER 2021-08-05 22:54 | Observation (INO) | payer BC ==
[~2021-08-05] VITALS: Ht 167.6 cm; Wt 76.2 kg
[2021-08-05 23:26] LABS: BASOPHILS # (AUTO) 0.1 (0.0-0.1); BASOPHILS % 0.9 % (0.0-1.0); EOSINOPHILS # (AUTO) 0.4 (0.0-0.4); EOSINOPHILS % 4.9 % (0.0-6.0); HEMATOCRIT 45.3 % (38.2-49.6); HEMOGLOBIN 15.1 g/dL (14.0-18.0); LYMPHOCYTES # (AUTO) 2.2 (1.0-3.2); LYMPHOCYTES % 24.9 % (18.0-39.1); MEAN CORPUSCULAR HEMOGLOBIN 31.1 pg (28-32); MEAN CORPUSCULAR HGB CONC 33.3 g/dL (31-35); MEAN CORPUSCULAR VOLUME 93.2 fL (81-99); MONOCYTES # (AUTO) 0.6 (0.2-0.8); MONOCYTES % 6.8 % (4.4-11.3); NEUTROPHILS # (AUTO) 5.4 (2.1-6.9); PLATELET COUNT 217 x10e3/uL (140-360); RED BLOOD COUNT 4.86 x10e6/uL (4.3-5.7); RED CELL DISTRIBUTION WIDTH 11.9 % (11.7-14.4)
[2021-08-05] MEDS ORDERED: LIDOCAINE HCL 1% LOCAL INJ 20 ML VIAL INJ ONE (23:30)
[2021-08-05] MEDS ORDERED: SODIUM CHLORIDE 0.9% 1000ML 1,000 ML IV ONE (23:30)
[2021-08-05 23:43] LABS: ALBUMIN 4.1 g/dL (3.5-5.0); ALBUMIN/GLOBULIN RATIO 1.6 (0.8-2.0); ANION GAP 15.7 mmol/L (8-16); CALCIUM 8.5 mg/dL (8.4-10.2); CREATININE, SERUM 1.07 mg/dL (0.72-1.25); POTASSIUM 3.7 mmol/L (3.5-5.1)
[2021-08-05 23:49] LABS: CREATINE KINASE MB 1.8 ng/mL (0-5.0)
[2021-08-06] MEDS ORDERED: LIDOCAINE HCL 2% JELLY 5 ML TUBE TOP ONE
[2021-08-06] MEDS ORDERED: LIDOCAINE HCL 2% JELLY 5 ML TUBE ONE (00:10)
[2021-08-06 00:30] LABS: CLARITY,URINE CLEAR (CLEAR); COLOR,URINE YELLOW (YELLOW); LEUKOCYTE ESTERASE ,URINE NEGATIVE (NEGATIVE); NITRITE,URINE NEGATIVE (NEGATIVE); PROTEIN,URINE DIPSTICK NEGATIVE (NEGATIVE)
[2021-08-06 00:31] LABS: AMPHETAMINES SCREEN,URINE NEGATIVE (NEGATIVE); BENZODIAZEPINES SCREEN,URINE NEGATIVE (NEGATIVE); KETONES,URINE 1+ (NEGATIVE); PHENCYCLIDINE SCREEN,URINE NEGATIVE (NEGATIVE); URINE UROBILINOGEN 0.2 mg/dL (0.2 - 1)
[2021-08-06 00:38] LABS: BACTERIA,URINE FEW /HPF; EPITHELIAL CELLS,URINE RARE /LPF; RBC,URINE 0-5 /HPF (0-5); WBC,URINE (MAN) 0-5 /HPF (0-5)
[2021-08-06] MEDS ORDERED: ONDANSETRON HCL INJ 2MG/ML 2ML 2 MG/ML VIAL IV PRN (01:45)
[2021-08-06] MEDS: SODIUM CHLORIDE 0.9% 1000ML 1,000 ML IV SCH ×2 (01:45→09:45)
[2021-08-06 04:00] VITALS: BP 131/83
[2021-08-06 04:54] VITALS: BP 131/83
[2021-08-06 07:42] LABS: CREATINE KINASE MB 2.5 ng/mL (0-5.0)
[2021-08-06 07:57] VITALS: BP 130/86
[2021-08-06 08:00] VITALS: BP 130/86
[2021-08-06] MEDS ORDERED: MULTIVITAMINS- 12 INJECTION 10 ML, FOLIC ACID MDV 1 MG, THIAMINE HCL INJ 100 MG in SODI... IV ONE (10:30)
[2021-08-06 11:52] VITALS: BP 146/83
[2021-08-06] MEDS ORDERED: BENICAR20 MG PO (14:36)
[2021-08-06] MEDS ORDERED: HYDROCHLOROTH12.5 MG PO (14:36)
[2021-08-06] MEDS ORDERED: ONDANSETRON HCL 4 MG ORAL DISINTEGRATING TAB PO PRN (15:30)
[2021-08-06 15:53] VITALS: BP 142/85
== END 2021-08-06 16:43 | disposition home or self-care (01) ==
LOC: ER 22:59 → ERHOLD 08-06 01:35 → MED/SURG2 08-06 03:37
PROVIDERS: ADMIT Internal Medicine; ATTEND Internal Medicine
DX: F10.120 Alcohol abuse with intoxication, uncomplicated (principal); E86.0 Dehydration; Y90.6 Blood alcohol level of 120-199 mg/100 ml; S01.511A Laceration without foreign body of lip, initial encounter; W18.30XA Fall on same level, unspecified, initial encounter; Y92.002 Bathroom of unspecified non-institutional (private) residence as the place of occurrence of the external cause; Z20.822 Contact with and (suspected) exposure to COVID-19
CPT/HCPCS: 12011; 36415 ×2; 70450; 71045; 72125; 80053; 80307; 80320; 81001; 82550 ×2; 82553 ×2; 83036; 84484 ×2; 85025; 93005; 93306; 93880; 94799; 96360; 99284; G0378; J2001 ×2; J2405; J3411; J7030; U0002